=== PATIENT | female | born 1990 | race Caucasian/White ===

== ENCOUNTER 2019-02-01 08:07 | Outpatient (REF) | payer BC, SELFPAY | END 2019-02-01 08:27 | LOC: NCHCN 08:07 | PROVIDERS: PCP Family Medicine; Visit Provider Physician Assistant Medical | DX: R30.0 Dysuria (principal) | CPT/HCPCS: 87086 ==

== ENCOUNTER 2019-02-14 11:29 | Outpatient (REF) | payer BC, SELFPAY | END 2019-02-14 11:49 | LOC: NCHCN 11:29 | PROVIDERS: PCP Family Medicine; Visit Provider Physician Assistant Medical | DX: R30.0 Dysuria (principal); R10.2 Pelvic and perineal pain | CPT/HCPCS: 87480; 87510; 87660 ==

== ENCOUNTER 2019-09-26 12:08 | Outpatient (REF) | payer BC, SELFPAY | END 2019-09-26 12:28 | LOC: NCHCN 12:08 | PROVIDERS: PCP Family Medicine; Visit Provider Nurse Practitioner Family | DX: S71.101A Unspecified open wound, right thigh, initial encounter (principal); L08.89 Other specified local infections of the skin and subcutaneous tissue | CPT/HCPCS: 87077; 87070; 87186; 87205 ==

== ENCOUNTER 2019-12-07 14:44 | Outpatient (REF) | payer BC, SELFPAY ==
[2019-12-10 19:18] LABS: Patient Race White; SARS-CoV-2 RNA Undetected (Undetected); SARS-CoV-2 Specimen Source Nasopharynx
== END 2019-12-07 15:04 ==
LOC: NCHCN 14:44
PROVIDERS: PCP Family Medicine; Visit Provider Physician Assistant Medical
DX: R50.9 Fever, unspecified (principal)
CPT/HCPCS: U0003

== ENCOUNTER 2020-12-18 13:57 | Outpatient (REF) | payer BC, SELFPAY ==
[2020-12-19 16:28] LABS: COVID-19 RT-PCR UVMMC Result Negative (Negative)
== END 2020-12-18 13:58 | disposition home or self-care (01) ==
LOC: NCHCN 13:57
PROVIDERS: PCP Family Medicine; Visit Provider Physician Assistant Medical
DX: Z20.822 Contact with and (suspected) exposure to COVID-19 (principal); J06.9 Acute upper respiratory infection, unspecified
CPT/HCPCS: U0003

== ENCOUNTER 2020-12-31 09:00 | Outpatient (REF) | payer BC, SELFPAY ==
--- NOTE | 2020-12-31 08:30 | PAPFT_PTH ---
PATIENT: Luzmaria Ramos LOC: [facility] U#:[id number] AGE/SX: 30/F ROOM: RE12/31/[address]: ABIMBOLA Valencia : 1990 BED: DIS: 12/31/2020 SPEC #: [id number] RECD: 12/31/20 11:11 STATUS: AGATHA REQ #: [id number] SAMARA: 12/31/20 08:[address]: Franci Salazar DEPT: [facility] Cytology RECD BY: Erika Peterson ENTERED: 12/31/20 11:12 SP TYPE: PAPFT OTHR DR: Yari Birch V Tissues: 1 - CX/ENDOCX FOR PAP SMEARS Procedures: PAP THIN PREP/UVM Screening HPV DNA PROBE Comments: [id number]
== END 2020-12-31 09:01 | disposition home or self-care (01) ==
LOC: LBN 09:00
PROVIDERS: PCP Family Medicine; Visit Provider Nurse Practitioner Family
DX: Z12.4 Encounter for screening for malignant neoplasm of cervix (principal); Z11.51 Encounter for screening for human papillomavirus (HPV); Z01.419 Encounter for gynecological examination (general) (routine) without abnormal findings
CPT/HCPCS: 88142; 87624

== ENCOUNTER 2021-03-26 16:39 | Outpatient (REF) | payer OTHER, SELFPAY ==
[2021-03-28 11:41] LABS: COVID-19 RT-PCR UVMMC Result Negative (Negative)
== END 2021-03-26 16:40 | disposition home or self-care (01) ==
LOC: NCHCN 16:39
PROVIDERS: PCP Family Medicine; Visit Provider Physician Assistant Medical
DX: Z20.822 Contact with and (suspected) exposure to COVID-19 (principal); J34.89 Other specified disorders of nose and nasal sinuses
CPT/HCPCS: U0003; U0005

== ENCOUNTER 2021-05-09 02:06 | Outpatient (CLI) | payer OTHER, SELFPAY ==
[2021-05-09 10:50] LABS: Abs Immature Grans 0.05 10^3/uL (0.0-0.06); Absolute Basophil Count 0.05 10^3/uL (0.0-0.2); Absolute Eosinophil Count 0.05 10^3/uL (0.0-0.7); Absolute Lymphocyte Count 1.42 10^3/uL (1.2-3.4); Absolute Monocyte Count 0.57 10^3/uL (0.1-0.8); Absolute Neutrophil Count 7.88 10^3/uL (1.2-6.7); Basophils % 0.5; Eosinophils % 0.5; HCT 38.1 % (36.0-46.0); HGB 12.6 g/dL (11.2-15.7); Immature Grans % 0.5; Lymphocytes % 14.2; MCH 28.3 pg (27.0-33.0); MCHC 33.1 % (32.0-36.0); MCV 85.6 fL (80-95); MPV 9.3 fL (8.0-11.0); Monocytes % 5.7; Neutrophils % 78.6; Nucleated RBC 0 %; Platelet Count 264 10^3/uL (130-400); RBC 4.45 10^6/uL (3.93-5.22); RDW 12.4 % (11.7-14.6); RDW-SD 38.5 fL; WBC 10.02 10^3/uL (4.4-10.8)
[2021-05-09 10:52] LABS: Kit/Specimen SENT
[2021-05-09 12:39] LABS: TSH (W/Ref FT4) 0.36 uIU/mL (0.36-3.74)
[2021-05-10 09:40] LABS: Hepatitis B Surface Ag Negative (Negative)
[2021-05-10 10:14] LABS: HIV-1/2 Ag & Ab Screen Negative (Negative)
[2021-05-10 10:28] LABS: Hepatitis C Ab w Rflx HCV PCR Negative (Negative)
[2021-05-10 11:37] LABS: Varicella IgG Antibody Positive (See Note)
[2021-05-10 11:40] LABS: Rubella IgG Ab (UVM) Positive (See Note)
[2021-05-13 12:50] LABS: Syphilis IgG w/Reflex Nonreactive (Nonreactive)
[2021-05-18 02:10] LABS: Specimen WB Whole Blood
[2021-05-18 02:24] LABS: Result Summary NEGATIVE; Specimen WB Whole Blood
== END 2021-05-09 02:07 | disposition home or self-care (01) ==
LOC: LBO 02:06
PROVIDERS: PCP Family Medicine; Visit Provider Advanced Practice Midwife
DX: Z34.81 Encounter for supervision of other normal pregnancy, first trimester
CPT/HCPCS: 81329; 86787; 86803; 86850; 86900; 86901; 87340; 87389; 81220; 84443; 85025; 86762; 86780

== ENCOUNTER 2021-05-09 12:30 | Outpatient (REF) | payer OTHER, SELFPAY ==
[2021-05-09 14:15] LABS: *AMPHETAMINES SCREEN URINE Negative (Negative); *BARBITURATES SCREEN URINE Negative (Negative); *BENZODIAZEPINES SCREEN URINE Negative (Negative); Cannabinoids THC Negative (Negative); Cocaine Screen,Urine Negative (Negative); METHADONE URINE SCREEN Negative (Negative); OPIATES URINE SCREEN Negative (Negative)
[2021-05-09 14:16] LABS: Tricyclic Antidepressants Negative (Negative)
[2021-05-15 10:45] LABS: Buprenorphine Negative ng/mL (Cutoff: 5.0); Norbuprenorphine Negative ng/mL (Cutoff: 2.5)
== END 2021-05-09 12:31 | disposition home or self-care (01) ==
LOC: LBN 12:30
PROVIDERS: PCP Family Medicine; Visit Provider Advanced Practice Midwife
DX: Z32.01 Encounter for pregnancy test, result positive (principal); Z34.91 Encounter for supervision of normal pregnancy, unspecified, first trimester
CPT/HCPCS: 80307; 87086

== ENCOUNTER 2021-06-06 19:34 | Outpatient (REF) | payer OTHER, SELFPAY ==
[2021-06-07 15:16] LABS: Chlamydia Result Negative (Negative); GC Result Negative (Negative)
== END 2021-06-06 19:35 | disposition home or self-care (01) ==
LOC: LBN 19:34
PROVIDERS: PCP Family Medicine; Visit Provider Advanced Practice Midwife
DX: Z11.3 Encounter for screening for infections with a predominantly sexual mode of transmission (principal)
CPT/HCPCS: 87491; 87591

== ENCOUNTER 2021-09-03 00:57 | Outpatient (CLI) | payer OTHER, SELFPAY ==
[2021-09-03 09:04] LABS: HCT 32.6 % (36.0-46.0); HGB 10.6 g/dL (11.2-15.7); MCH 28.6 pg (27.0-33.0); MCHC 32.5 % (32.0-36.0); MCV 88 fL (80-95); MPV 9.3 fL (8.0-11.0); Platelet Count 217 10^3/uL (130-400); RBC 3.71 10^6/uL (3.93-5.22); RDW 12.8 % (11.7-14.6); RDW-SD 40.5 fL; WBC 9.89 10^3/uL (4.4-10.8)
[2021-09-03 09:47] LABS: Glucose,1 Hr (Glucola) 105 mg/dL (80-140)
== END 2021-09-03 00:58 | disposition home or self-care (01) ==
PROVIDERS: Advanced Practice Midwife; PCP Family Medicine; Visit Provider Advanced Practice Midwife
DX: Z34.93 Encounter for supervision of normal pregnancy, unspecified, third trimester (principal); Z3A.28 28 weeks gestation of pregnancy
CPT/HCPCS: 36415; 82950; 85027

== ENCOUNTER → 2021-10-01 00:20 | Outpatient (CLI) | payer OTHER, SELFPAY ==
--- OUTSIDE RECORDS SUMMARY | 2021-10-01 00:21 | XMS_ITS | Clinical Summary ---
:1990 Author Organization [place] [address] Care Team Providers Name Role Phone Yari Birch MD Primary Care Provider Allergies No known active allergies Medications Medication Sig Dispensed Refills Start Date End Date Status vitamin with Take by mouth. 0 Active [id number] Tablet magnesium oxide Take 400 mg by 0 Active (MAG-OX) 400 mg Tablet mouth daily. Family History Medical History Relation Comments Cystic Fibrosis Cousin Relation Status Comments Cousin Social History Tobacco Use Types Packs/Day Years Used Date Never Smoker Smokeless Tobacco: Never Used Sex Assigned at Date Recorded Not on file Last Filed Vital Signs Vital Sign Reading Time Taken Comments Blood Pressure 134/74 06/04/2016 1:48 PM EDT Pulse - - Temperature - - Respiratory Rate - - Oxygen Saturation - - Inhaled Oxygen Concentration - - Weight 61.1 kg (134 lb 11.2 oz) 06/04/2016 1:48 PM EDT Height - - Body Mass Index - - Plan of Treatment Health Maintenance Due Date Last Done Comments Covid-19 Vaccine (#1) 1993 HIV screen 2006 Hepatitis C Screening 2006 Tdap adult 2007 Tetanus vaccine 2007 HPV test 2018 PAP Smear 2018 Influenza (Flu) vaccine (1 of 1 - Influenza standard 11/14/2021 series) Insurance Payer Benefit Plan / Subscriber ID Effective Dates Phone Addre ss Type Group [facility]ETERIO [id number] 2016-Present [address] [place] [address] Care Teams Genetics Physician Relationship Specialty Start Date End Date Yari Birch MD PCP - General 02/05/10 [address] [place] [address]
--- OUTSIDE RECORDS SUMMARY | 2021-10-01 00:21 | XMS_ITS | Encounter Summary ---
:1990 Author Organization [facility] [place] [address] Care Team Providers Name Role Phone Yari Birch MD Primary Care Provider Reason for Visit Reason Comments Ultrasound Finding echogenic intracardiac focus Consultation (Routine) - Closed Specialty Diagnoses / Procedures Referred By Contact Refer red To Contact Genetics / Obstetrics Diagnoses echogenic focus Jazzmine Bean CNM [facility] Subject Matter Expert 5l and Gynecology Procedures full slot [address] [place] [address] [address] [place] [address] Phone: Fax: Referral ID Status Reason Start Date Expiration Date Visits Requ ested Visits Authorized [id number] Closed 05/20/2016 05/20/2017 2 2 Encounter Details Date Type Department Care Team Description 06/04/2016 Office Visit Obstetrics and Chetan Kendall Echogen ic focus of heart of fetus affecting antepartum care of mother, not applicable or unspecified fetus; Gynecology at [facility] Encounter for genetic counseling [address] [place] OBSTETRICS & [id number] GYNECOLOGY [phone] [place], [place] [address] Social History Tobacco Use Types Packs/Day Years Used Date Never Smoker Smokeless Tobacco: Never Used Sex Assigned at Date Recorded Not on file documented as of this encounter Progress Notes Chetan Kendall, [facility] - 06/04/2016 2:00 PM EDT Genetic Counseling Note Luzmaria Ramos is a 26 y.o. female currently at 21w2d gestation. She was referred to the Diagnosis Program by Jazzmine Bean CNM. I met with Luzmaria for a 50 minute genetic counseling visit. She was accompanied to the visit by her , Harry Ramos; and her mother, Debbi Barton. Chief Complaint Patient presents with ??? Ultrasound Finding echogenic intracardiac focus Medical History History reviewed. No pertinent past medical history. Family History Problem (# of Occurrences) Relation (Name,Age of Onset) Cystic Fibrosis (1) Cousin Warner's father had aortic stenosis diagnosed at age four; he has had three surgical repairs. The reported family history was otherwise unremarkable for intellectual disability, congenital anomalies, recurrent loss, or known genetic conditions. A pedigree was obtained and will be scanned into Ra bonilla's electronic medical record. Luzmaria is of Australian and ancestry. Warner is of Omani, Italian, Guamanian, Belarusian, and ancestry. Consanguinity is denied. Obstetric History T1 TAB0 SAB0 E0 M0 L1 # Outcome Date GA Lbr Ernie/2nd Weight Sex Delivery Anes PTL Lv 2 Current 1 Term 03/20/14 39w0d 3.452 kg (7 lb 9.8 oz) F Vag-Spont None N Y Patient's last menstrual period was 01/07/2016. Estimated Date of Delivery: 10/13/2016 Assessment 1. Echogenic intracardiac focus: Echogenic intracardiac foci are observed in 4- 7% of euploid fetuses. They are also noted in 15-20% of fetuses with Down syndrome (trisomy 21) and are considered to be asoft marker for this condition. Luzmaria previously declined aneuploidy screening. We discussed the benefits, risks, and limitations of cell-free DNA screening for trisomy 21 and amniocentesis for chromosome analysis. Luzmaria declined amniocentesis but will await the results of today's ultrasound before making a final decision regarding cell-free DNA screening. Aside from the relationship to aneuploidy, an echogenic intracardiac focus is a benign finding and is not associated with an increased risk for structural heart defects. echocardiogram or follow-up ultrasonography is not warranted. 2. Family history of cystic fibrosis: Luzmaria has a 14-year-old cousin who was diagnosed with cystic fibrosis at age seven. She has mild pulmonary disease but poor growth. Based on the family history asreported, Luzmaria's chance of being a cystic fibrosis carrier is 1 in 4 (25%). With no known family history, Warner's carrier risk is 1 in 25 (4%). Their chance of having an affected child is 1 in 400 (0.25%). Luzmaria had previously declined carrier screening and is not interested in pursuing this today. If she (or other family members) would like to pursue this in the future, it would be very important to know her cousin's CFTR variants to ensure that the appropriate test would be selected. 3. Family history of aortic stenosis: Congenital heart defects are the most common type of defect and affect about 1% of newborns. The majority of congenital heart defects are isolated, although some will be associated with a genetic condition or an environmental exposure. Warner's father's historyis consistent with isolated, congenital aortic stenosis. The recurrence risk to Warner's children is around 1-2%. Plan Luzmaria is scheduled for a targeted morphology ultrasound and maternal- medicine consultation following our visit today. Addendum Following today's ultrasound, Luzmaria requested cell-free DNA screening. She will have her blood drawn today for the [employer] Test. I will call her when the results are available in 5-10 days. documented in this encounter Plan of Treatment Not on filedocumented as of this encounter Procedures Procedure Name Priority Date/Time Associated Diagnosis Comme nts LAB SCAN 06/16/2016 12:00 AM Results for this EDT procedure are i n the results section . documented in this encounter Results SCAN DOC: LAB (06/16/2016 12:00 AM EDT) Narrative 06/16/2016 12:00 AM EDT This result has an attachment that is no t available. Ordered by an unspecified provider. Scanning Provider MEDIA MGR SCAN EXT ORDR/RSLT Miscellaneous Lab request (06/04/2016 4:38 PM EDT) [facility] gist Method Time Signature Misc Lab Request NADIYA IBARRA Result received in [facility]. HOSPITAL LABORATORY Specimen Anatomical Collection Method Collection Time Receive d Time (Source) Location / / Volume Laterality Blood specimen 06/04/2016 4:38 PM 017 7:05 (specimen) EDT PM EDT Resulting Agency Comment Spec In Lab E Beverley Oconnor MD HEMATOLOGY ORDERABLES Performing Organization Address City/State/ZIP Code Phon [place] [address] documented in this encounter Visit Diagnoses Diagnosis Echogenic focus of heart of fetus affect ing antepartum care of mother, not applicable or unspecified fetus Encounter for genetic counseling Genetic counseling documented in this encounter Care Teams Biopharmaceutical Rep Relationship Specialty Start Date End Date Yari Birch MD PCP - General 02/05/10 [address] [place] [address] documented as of this encounter
--- OUTSIDE RECORDS SUMMARY | 2021-10-01 00:21 | XMS_ITS | Encounter Summary ---
:1990 Author Organization [facility] [address] Care Team Providers Name Role Phone Yari Birch MD Primary Care Provider Reason for Visit Reason Onset Date Comments Results 06/11/2016 Encounter Details Date Type Department Care Team Description 06/11/2016 Telephone Obstetrics and Gynecology at [facility] Chetan willoughby [facility] Results [facility] OBSTETRICS [place] [address] [place] [address] [phone] (Wo rk) Social History Tobacco Use Types Packs/Day Years Used Date Never Smoker Smokeless Tobacco: Never Used Sex Assigned at Date Recorded Not on file documented as of this encounter Miscellaneous Notes Telephone Encounter - Chetan Kendall [facility] - 06/11/2016 4:32 PM EDT Genetic Counseling Telephone Note I informed Luzmaria Barton of the following results by phone today: [place] Test: Condition Result Probability Trisomy 21 Low Probability Less than 1/10,000 Trisomy 18 Low Probability Less than 1/10,000 Trisomy 13 Low Probability Less than 1/10,000 The [place] Test is a type of cell-free DNA screening for aneuploidy. I reminded Luzmaria that diagnostic testing is available for a definitive result. The laboratory report will be scanned into [facility]. A letter will be mailed to the referring provider'soffice with a copy of the report. documented in this encounter Plan of Treatment Not on filedocumented as of this encounter Visit Diagnoses Not on filedocumented in this encounter Care Teams Trade Mark Attorney Relationship Specialty Start Date End Date Yari Birch MD PCP - General 02/05/10 [address] [place] [address] documented as of this encounter
--- OUTSIDE RECORDS SUMMARY | 2021-10-01 00:21 | XMS_ITS | Encounter Summary ---
:1990 Author Organization [facility] [place] [address] Care Team Providers Name Role Phone Yari Birch MD Primary Care Provider Encounter Details Date Type Department Care Team Description 05/21/2016 Orders Only Obstetrics and Hui Gould MD Echogenic intracardiac Gynecology at [facility] focus of fetus on [facility] DR ultrasound [facility] OBSTETRICS & [place], [place] GYNECOLOGY [id number] [place] [address] [phone] Social History Tobacco Use Types Packs/Day Years Used Date Never Assessed Sex Assigned at Date Recorded Not on file documented as of this encounter Plan of Treatment Not on filedocumented as of this encounter Results US OB Detailed Morphology (06/04/2016 3:38 PM EDT) Anatomical Region Laterality Modality Pelvis, Abdomen Ultrasound Specimen (Source) Anatomical Collection Method Collection Time Re ceived Time Location / / Volume Laterality 06/04/2016 3:36 PM EDT Impressions 06/04/2016 4:53 PM EDT 2nd Trimester - ??EIF- ??Summary Single intrauterine with a ge stational age of 21w 2d based on LMP ??(01/07/16) Composite age based on the current ultr asound alone is 21w 2d. Current growth parameters are consisten t with prior dating indicating normal growth. Amniotic fluid volume is Normal, Genetic sonogram shows an echogenic int ra cardiac focus. ??The remainder of the anatomy a ppeared normal. ??I ??viewed the images and agree with the above interpretation. ? Katharine Oconnor MD Electronically Signed Final Report ?? 04:52 pm Narrative 06/04/2016 4:53 PM EDT OBSTETRICS REPORT ?(Signed Final 06/04/2016 04:52 pm) PATIENT INFO: ID #: ? [id number] ?: ??[birth year] (26 yrs) Name: ? BAN Ya ? Visit Date: 06/04/2016 03:36 pm ? RENEE PERFORMED BY: Performed By: ? Светлана Reich RDMS Attending: ?Katharine Oconnor MD ? ?Beverley Referred By: ?JAZZMINE LLOYD CNM Location: ? [place] SERVICE(S) PROVIDED: ??[facility] - Detailed Morphology - [id number] ? [id number] INDICATIONS: ??echogenic focus R ventricle, Jazzmine Cain vane OB HISTORY: Blood Type: ?? B+ ? Height: ??5' 4 ?? Weight: ?? 134 ? BMI: ??23 EVALUATION: Num Of Fetuses: ? 1 Heart ? 150 Rate(bpm): Cardiac Activity: ?? Observed, normal r hythm Presentation: ? Breech Placenta: ? Anterior P. Cord Insertion: ??Within Normal Limi ts Amniotic Fluid LILA FV: ?Normal --------- BIOMETRY: --------- BPD: ?50.0 ??mm ? G.Age: ?? 21w 1d OFD: ?70.0 ??mm HC: ?192.6 ??mm ? G.Age: ?? 21w 4d AC: ?163.4 ??mm ? G.Age: ?? 21w 3d FL: ? 34.1 ??mm ? G.Age: ?? 20w 5d HUM: ?31.9 ??mm ? G.Age: ?? 20w 5d CER: ?22.8 ??mm ? G.Age: ?? 21w 3d NFT: ? 4.3 ??mm NB: ? 7.44 ??mm LV: ?7.1 ??mm CM: ?4.6 ??mm CI: ?71.4 ??% ? 70 - 86 FL/HC: ? 17.7 ??% ? 15.9 - 20.3 HC/AC: ? 1.18 ?1.06 - 1.25 FL/BPD: ?68.2 ??% FL/AC: ? 20.9 ??% ? Est. FW: ? 402 ?? gm ?? 0 lb 14 oz GESTATIONAL AGE: LMP: ? 21w 2d ?Date : ??01/07/16 ? MALCOM: ?? 10/13/16 U/S Today: ? 21w 2d ?MALCOM: ?? 10/13/16 Best: ?21w 2d ?? Det. By: ??LMP ??(01/07/16) ?MALCOM: ?? 10/13/16 TARGETED ANATOMY: Central Nervous System Calvarium: ?Within Norm al Limits Intracranial: ? Within Normal Limits Cavum: ?Within Padmini l Limits Lat. Ventricles: ?Within Normal Limits Cerebellum: ? Within Padmini l Limits Choroid Plexus: ? Within Normal Limits Cisterna Magna: ? Within Normal Limits Spine Cervical: ? Visualized Thoracic: ? Visualized Lumbar: ? Visualized Sacral: ? Visualized Head/Neck Face: ? Within No rmal Limits Lips: ? Within No rmal Limits Nuchal Fold: ?Within Padmini l Limits Eyes: ? Normal ?? lens / orbits Neck: ? Within No rmal Limits Profile: ?Visualized Thorax Thoracic Contour: ? Ribs appear nor mal Lungs: ?Visualize d Four Chamber: ? Echogenic int racardi Cardiac Motion: ? Normal Rhythm R Outflow Tract: ?Visualized L Outflow Tract: ?Visualized Aortic Arch: ?Visualized Cardiac Worthington: ? Visualized 3 Vessel View: ?Visualized Diaphragm: ?Visualized Abdomen Ventral Wall: ? Visualized Stomach: ?Visualized Situs: ?Normal Liver: ?Visualize d Lt Kidney: ?Visualized Rt Kidney: ?Visualized Bladder: ?Visualized Bowel: ?Visualize d Extremities Lt Humerus: ? Within Nomal Limits Rt Humerus: ? Within Padmini l Limits Lt Forearm: ? Within Padmini l Limits Rt Forearm: ? Within Padmini l Limits Lt Hand: ?Within Nor mal Limits Rt Hand: ?Within Nor mal Limits Lt Femur: ? Within Norm al Limits Rt Femur: ? Within Norm al Limits Lt Lower Leg: ? Within Normal Limits Rt Lower Leg: ? Within Normal Limits Lt Foot: ?Visualized Rt Foot: ?Visualized Other Umbilical Cord: ? 3 vessel cord Genitalia: ?Female Cord Insertion: ? WIthin Normal Limits Comment: ? Nasal Bone: ??Visuali zed CERVIX UTERUS ADNEXA: Left Ovary Visualized Right Ovary Visualized Procedure Note Katharine Oconnor MD - 06/04/2016For matting of this note might be different from the original. OBSTETRICS REPORT (Signed Final 017 04:52 pm) PATIENT INFO: ID #: [id number] : [birth year] (26 y rs) Name: BAN Ya Visit Date: 06/04/2016 0 3:36 pm RENEE PERFORMED BY: Performed By: Светлана Reich RDMS Attending: Katharine Oconnor MD Referred By: JAZZMINE LLOYD CNM Location: [place] SERVICE(S) PROVIDED: [facility] - Detailed Morphology - [id number] INDICATIONS: echogenic focus R ventricle, Anea Lelon g OB HISTORY: Blood Type: B+ Height: 5'4 Weight: 134 BMI: 23 EVALUATION: Num Of Fetuses: 1 Heart 150 Rate(bpm): Cardiac Activity: Observed, normal rhyt hm Presentation: Breech Placenta: Anterior P. Cord Insertion: Within Normal Limits Amniotic Fluid LILA FV: Normal --------- BIOMETRY: --------- BPD: 50.0 mm G.Age: 21w 1d OFD: 70.0 mm HC: 192.6 mm G.Age: 21w 4d AC: 163.4 mm G.Age: 21w 3d FL: 34.1 mm G.Age: 20w 5d HUM: 31.9 mm G.Age: 20w 5d CER: 22.8 mm G.Age: 21w 3d NFT: 4.3 mm NB: 7.44 mm LV: 7.1 mm CM: 4.6 mm CI: 71.4 % 70 - 86 FL/HC: 17.7 % 15.9 - 20.3 HC/AC: 1.18 1.06 - 1.25 FL/BPD: 68.2 % FL/AC: 20.9 % 20 - 24 Est. FW: 402 gm 0 lb 14 oz GESTATIONAL AGE: LMP: 21w 2d Date: 01/07/16 MALCOM: 7 U/S Today: 21w 2d MALCOM: 10/13/16 Best: 21w 2d Det. By: LMP (01/07/16) ED TARGETED ANATOMY: Central Nervous System Calvarium: Within Normal Limits Intracranial: Within Normal Limits Cavum: Within Normal Limits Lat. Ventricles: Within Normal Limits Cerebellum: Within Normal Limits Choroid Plexus: Within Normal Limits Cisterna Magna: Within Normal Limits Spine Cervical: Visualized Thoracic: Visualized Lumbar: Visualized Sacral: Visualized Head/Neck Face: Within Normal Limits Lips: Within Normal Limits Nuchal Fold: Within Normal Limits Eyes: Normal lens / orbits Neck: Within Normal Limits Profile: Visualized Thorax Thoracic Contour: Ribs appear normal Lungs: Visualized Four Chamber: Echogenic intracardi Cardiac Motion: Normal Rhythm R Outflow Tract: Visualized L Outflow Tract: Visualized Aortic Arch: Visualized Cardiac [place]: Visualized 3 Vessel View: Visualized Diaphragm: Visualized Abdomen Ventral Wall: Visualized Stomach: Visualized Situs: Normal Liver: Visualized Lt Kidney: Visualized Rt Kidney: Visualized Bladder: Visualized Bowel: Visualized Extremities Lt Humerus: Within Nomal Limits Rt Humerus: Within Normal Limits Lt Forearm: Within Normal Limits Rt Forearm: Within Normal Limits Lt Hand: Within Normal Limits Rt Hand: Within Normal Limits Lt Femur: Within Normal Limits Rt Femur: Within Normal Limits Lt Lower Leg: Within Normal Limits Rt Lower Leg: Within Normal Limits Lt Foot: Visualized Rt Foot: Visualized Other Umbilical Cord: 3 vessel cord Genitalia: Female Cord Insertion: WIthin Normal Limits Comment: Nasal Bone: Visualized CERVIX UTERUS ADNEXA: Left Ovary Visualized Right Ovary Visualized IMPRESSION 2nd Trimester - EIF- Summary Single intrauterine with a ge stational age of 21w 2d based on LMP (01/07/16) Composite age based on the current ultr asound alone is 21w 2d. Current growth parameters are consisten t with prior dating indicating normal growth. Amniotic fluid volume is Normal, Genetic sonogram shows an echogenic int ra cardiac focus. The remainder of the anatomy odilia eared normal. I viewed the images and agree with the above interpretation. Katharine Oconnor MD Electronically Signed Final Report 06/04 04:52 pm Hui Gould MD IMG US OB ORDERABLES documented in this encounter Visit Diagnoses Diagnosis Echogenic intracardiac focus of fetus on ultrasound Echogenic intracardiac focus of fetus on ultrasound documented in this encounter Care Teams Construction Controller Relationship Specialty Start Date End Date Yari Birch MD PCP - General 11/23/10 [address] [place] [address] documented as of this encounter
--- OUTSIDE RECORDS SUMMARY | 2021-10-01 00:21 | XMS_ITS | Encounter Summary ---
:1990 Author Organization [facility] [place] [address] Care Team Providers Name Role Phone Yari Birch MD Primary Care Provider Reason for Visit Reason Comments Ultrasound Consultation (Routine) - Closed Specialty Diagnoses / Procedures Referred By Contact Refer red To Contact Genetics / Obstetrics Diagnoses echogenic focus Jazzmine Bean CNM [facility] Auto Inspection Specialist 5l and Gynecology Procedures full slot [address] [place], [place] [address] [address] [place] [address] Phone: Fax: Referral ID Status Reason Start Date Expiration Date Visits Requ ested Visits Authorized [id number] Closed 05/20/2016 05/20/2017 2 2 Encounter Details Date Type Department Care Team Description 06/04/2016 Procedure visit Obstetrics and Pscjose eliasrrer, E Echogenic focus of Gynecology at [facility] MD Beverley heart of fetus [facility] antepartum [facility] [address] care of mother, not [place], [place] OB[place]ETRICS & [place] [id number] GYNECOLOGY unspecified fetus [phone] [place], [place] [address] Social History Tobacco Use Types Packs/Day Years Used Date Never Smoker Smokeless Tobacco: Never Used Sex Assigned at Date Recorded Not on file documented as of this encounter Last Filed Vital Signs Vital Sign Reading Time Taken Comments Blood Pressure 134/74 06/04/2016 1:48 PM EDT Pulse - - Temperature - - Respiratory Rate - - Oxygen Saturation - - Inhaled Oxygen Concentration - - Weight 61.1 kg (134 lb 11.2 oz) 06/04/2016 1:48 PM EDT Height - - Body Mass Index - - documented in this encounter Progress Notes Katharine Oconnor MD - 06/04/2016 3:30 PM EDT Diagnosis/Maternal Medicine Consult Note Luzmaria Barton is a 26 y.o. year old female who is at 21w2d gestation. She is seen in consultation at the request of Jazzmine Bean CNM for evaluation of anatomy due to echogenic intracardiac focus. She was seen today for maternal- medicine consultation, ultrasound evaluation and genetic counseling with Chetan Kendall MS. The patient previously declined aneuploidy screening. Her a priori risk is ~1:1000, based upon maternal age. Review of Systems Constitutional:feels well Movement: normal Contractions: none Leaking: None Bleeding: None There are no active problems to display for this patient. No past medical history on file. No past surgical history on file. Family History Problem Relation Age of Onset ??? Cystic Fibrosis Cousin Social History Occupational History ??? Not on file. Social History Main Topics ??? Smoking status: Never Smoker ??? Smokeless tobacco: Never Used ??? Alcohol use Not on file ??? Drug use: Not on file ??? Sexual activity: Not on file OB History Para Term AB TAB SAB Ectopic Multiple Living 2 1 1 1 # Outc Date GA Lbr Ernie/2nd Wgt Sex Del Anes PTL Lv 1 Term 03/2014 39w0d 3.452 kg (7 lb 9.8 oz) F Vag-Spont None N Y 2 Current Current Outpatient Prescriptions Medication Sig Dispense Refill ??? vitamin with zusgvwxy-Md-Ceiu-FA Tablet Take by mouth. ??? magnesium oxide (MAG-OX) 400 mg Tablet Take 400 mg by mouth daily. No current facility-administered medications for this visit. No Known Allergies Ultrasound Date: 06/04/2016 Amniotic fluid volume normal Presentation breech Placenta anterior Growth appropriate for gestational age anatomy is remarkable for an isolated echogenic intracardiac focus Physical Exam BP 134/74 (BP Location (NBP): Right arm, Patient Position: Sitting, BP Cuff Sizes: Adult (25-34 cm)) Wt 61.1 kg (134 lb 11.2 oz) LMP 01/07/2016 General: alert, well appearing, in no apparent distress, oriented to person, place and time HEENT: normocephalic, atraumatic Neurologic:alert, oriented, normal speech, no focal findings or movement disorder noted Psychiatric: Affect is Appropriate. Assessment and Recommendations: 26 y.o. year old female at 21w2d weeks gestation, referred for counseling regarding echogenic intracardiac focus, with otherwise normal anatomy and low risk on aneuploidy screen based upon maternal age. We discussed that an echogenic intra-cardiac focus is a minor marker for Down Syndrome. When seen with other markers it indicates increased risk, but when seen in isolation it does not change risk. EIFis not an indication of a heart defect, and children with echogenic foci have normal heart structureand function. Based upon this information the patient declined diagnostic testing. She did opt for cell-free DNA screening. No follow-up examinations are indicated. I appreciate the opportunity to be involved in this patients care, and am available if further questions should arise. Katharine OCONNOR MD 06/04/2016 Cc: Jazzmine Bean [facility] [address] [place] [id number] , with copy of ultrasound report documented in this encounter Plan of Treatment Not on filedocumented as of this encounter Procedures Procedure Name Priority Date/Time Associated Comments Diagnosis MISCELLANEOUS LAB Routine 06/04/2016 4:38 PM Echogenic focus o f Results for this REQUEST EDT heart of fetus procedure are in affecting the results antepartum care of section. mother, not applicable or unspecified fetus documented in this encounter Results Miscellaneous Lab request (06/04/2016 4:38 PM EDT) [facility] Method Time Signature [facility] Lab Request NADIYA LAWSONCOCK Result received in [facility]. [facility] Specimen Anatomical Collection Method Collection Time Receive d Time (Source) Location / / Volume Laterality Blood specimen 06/04/2016 4:38 PM 017 7:05 (specimen) EDT PM EDT Resulting Agency Comment Spec In Lab E Beverley Oconnor MD HEMATOLOGY ORDERABLES Performing Organization Address City/State/[place] [address] documented in this encounter Visit Diagnoses Diagnosis Echogenic focus of heart of fetus affect ing antepartum care of mother, not applicable or unspecified fetus documented in this encounter Care Teams Laundry Clerk Relationship Specialty Start Date End Date Yari Birch MD PCP - General 02/05/10 [address] [place] [address] documented as of this encounter
--- OUTSIDE RECORDS SUMMARY | 2021-10-01 00:21 | XMS_ITS | Encounter Summary ---
:1990 Author Organization [facility] [place] [address] Care Team Providers Name Role Phone Yari Birch MD Primary Care Provider Encounter Details Date Type Department Care Team Description 06/04/2016 Hospital Encounter Radiology at [facility] Hui Gould, Echogenic [facility] intracardiac focus of [facility] fetus on [place], [place] [address] ultrasound [id number] OBSTETRICS & [phone] [place] [address] Social History Tobacco Use Types Packs/Day Years Used Date Never Smoker Smokeless Tobacco: Never Used Sex Assigned at Date Recorded Not on file documented as of this encounter Medications at Time of Discharge Medication Sig Dispensed Refills Start Date End Date vitamin with Take by mouth. 0 fsoedtlf-Li-Qena-FA Tablet magnesium oxide (MAG-OX) Take 400 mg by mouth 0 400 mg Tablet daily. documented as of this encounter Plan of Treatment Not on filedocumented as of this encounter Procedures Procedure Name Priority Date/Time Associated Diagnosis Comme nts US OB DETAILED Routine 06/04/2016 3:38 PM Echogenic Results for this MORPHOLOGY EDT intracardiac focus of proced ure are in fetus on the result s ultrasound section. documented in this encounter Results US OB Detailed Morphology [...] and agree with the above interpretation. ? E Carmen Oconnor MD Electronically Signed Final Report ?? 04:52 pm Narrative 06/04/2016 4:53 PM EDT OBSTETRICS REPORT ?(Signed Final 06/04/2016 04:52 pm) PATIENT INFO: ID #: ? [id number] ?: ??[birth year] (26 yrs) Name: ? LUZMARIA Ya ? Visit Date: 06/04/2016 03:36 pm ? RENEE PERFORMED BY: Performed By: ? Светлана Reich RDMS Attending: ?Katharine Oconnor MD ? ?Beverley Referred By: ?JAZZMINE LLOYD [facility] Location: ? [employer] SERVICE(S) PROVIDED: ??[facility] - Detailed Morphology - [id number] ? [id number] INDICATIONS: ??echogenic focus R ventricle, Anea Lel vane OB HISTORY: Blood Type: ?? B+ [...] ?68.2 ??% FL/AC: ? 20.9 ??% ? 20 - Est. FW: ? 402 ?? gm ?? [...] Outflow Tract: ?Visualized Aortic Arch: ?Visualized Cardiac Tujunga: ? Visualized 3 Vessel View: ?Visualized Diaphragm: [...] 017 04:52 pm) PATIENT INFO: ID #: [id number] : [birth year] (26 y rs) Name: LUZMARIA Ya Visit Date: 06/04/2016 0 3:36 pm RENEE PERFORMED BY: Performed By: Светлана Reich RDMS Attending: Katharine Oconnor MD Referred By: JAZZMINE LLOYD CNM Location: [employer] SERVICE(S) PROVIDED: [facility] - Detailed Morphology - [id number] INDICATIONS: echogenic focus R ventricle, Jazzmine Mcqueen g OB HISTORY: Blood Type: B+ Height: [...] Outflow Tract: Visualized Aortic Arch: Visualized Cardiac Tujung[place]: Visualized 3 Vessel View: Visualized Diaphragm: Visualized [...] ultrasound documented in this encounter Care Teams International Travel Consultant Relationship Specialty Start Date End Date Yari Birch MD PCP - General 02/05/10 [address] [place] [address] documented as of this encounter
--- OUTSIDE RECORDS SUMMARY | 2021-10-01 00:22 | XMS_ITS | Encounter Summary ---
:1990 Author Organization [facility] Address [address] [place] [address] Care Team Providers Name Role Phone Lacey Alex MD Primary Care Provider Encounter Details Date Type Department Care Team Description 05/09/2021 Lab Requisition [facility] Outr Resulting Lab, Pathology & Laboratory Provider [facility] [address] [place] [address] Social History Tobacco Use Types Packs/Day Years Used Date Never Assessed Sex Assigned at Date Recorded Not on file documented as of this encounter Plan of Treatment Not on filedocumented as of this encounter Procedures Procedure Name Priority Date/Time Associated Diagnosis Comme nts HEPATITIS C AB W Routine 05/09/2021 10:35 Results for this REFLEX TO HCV RNA EST procedure are in BY PCR the results section. HEPATITIS B SURFACE Routine 05/09/2021 10:35 Resu lts for this ANTIGEN EST procedure are i n the results section. documented in this encounter Results HEPATITIS B SURFACE ANTIGEN (05/09/2021 10:35 EST) Pathologist Sig nature Hep B Surface Ag Negative Negative [facility] Specimen Blood - Venous blood (substance) Performing Organization Address [facility]/ZIP Code Phon e Number [facility] [address] [place] [address] SERVICES HEPATITIS C AB W REFLEX TO HCV RNA BY PCR (05/09/2021 10:35 EST) Pathologist Sig nature Hep C Antibody Negative Negative [facility] ORY SERVICES Specimen Blood - Venous blood (substance) Performing Organization Address [facility] Phon e Number [facility] [address] [place] [address] SERVICES documented in this encounter Visit Diagnoses Not on filedocumented in this encounter Care Teams Permaculture Designer Relationship Specialty Start Date End Date Lacey Alex MD PCP - General 12/13/[address] [place] [address] [address] [place] [address] documented as of this encounter
--- OUTSIDE RECORDS SUMMARY | 2021-10-01 00:22 | XMS_ITS | Encounter Summary ---
:1990 Author Organization [facility] Address [address] [place] [address] Care Team Providers Name Role Phone Lacey Alex MD Primary Care Provider Encounter Details Date Type Department Care Team Description 01/01/2021 Lab Requisition [facility] Franci Salazar E ncounter for other Pathology & TOOL REPAIRER general examination Laboratory Medicine [address] [place], [place] [address] [facility] [address] [place] [address] Social History Tobacco Use Types Packs/Day Years Used Date Never Assessed Sex Assigned at Date Recorded Not on file documented as of this encounter Plan of Treatment Not on filedocumented as of this encounter Procedures Procedure Name Priority Date/Time Associated Comments Diagnosis PAP TEST Today 12/31/2020 8:30 Encounter for other Resul ts for this EDT general examination procedur e are in the results section. HUMAN PAPILLOMAVIRUS Today 12/31/2020 8:30 Encounter for oth er Results for this (HPV) DETECTION-HIGH EDT general examination procedure are in RISK TYPES the results section. documented in this encounter Results HUMAN PAPILLOMAVIRUS (HPV) DETECTION-HIGH RISK TYPES (12/31/2020 8:30 EDT) Human Papillomavirus NegativeComment: No Negative [facility] (HPV) Detection-High E6 or E7 mRNA is CENTER LABORATOR Y Types detected from HPV SERVICES types 16,18,31,33,35,39,45 ,51,52,56,58,59,66, and 68 by clinical specialty rep mediated amplification. Specimen Pap Test - Cervix and/or Endocervix Performing Organization Address City/State/ZIP Code Phon e Number [facility] [address] [place] [address] SERVICES PAP TEST (12/31/2020 8:30 EDT) Specimens A. Cervix and/or [facility] Endocervix , ThinPrep CENTER Imaging System with LABORATORY Manual Evaluation SERVICES Specimen Adequacy Satisfactory for [facility] Evaluation - CENTER transformation zone LABORATORY component present SERVICES General Negative for [facility] intraepithelial [place] lesion or malignancy LABORATORY SERVICES Attestation . [facility] signed by AGATA Abad CT(ASC P) SERVICES on 01/09/2021 a t 2035 Clinical History SEE BELOW [facility] HPV The result for the Human Pap illomavirus (HPV) Detection-High Risk Types is Negative. No E6 or E7 mRNA is detected from HPV types 16,18,31,33,35,39,45,51,52,56,58,59,66, and 68 by clinical specialty rep mediated [facility] amplification.Testing was pe rformed on specimen [id number] and was resulted on 01/09/20212030 EDT by VIVIAN, LAB INSTRUMENT RESULTS IN [facility] SERVICES Performing Lab [facility] SERVICES Scanned Images [facility] SERVICES Specimen Pap Test - Cervix and/or Endocervix Performing Organization Address City/State/ZIP Code Phon e Number [facility] [address] [place] [address] SERVICES documented in this encounter Visit Diagnoses Diagnosis Encounter for other general examination documented in this encounter Care Teams Preparing Box Tender Relationship Specialty Start Date End Date Lacey Alex MD PCP - General 12/13/[address] [place] [address] ,[address] [place] [address] documented as of this encounter
--- OUTSIDE RECORDS SUMMARY | 2021-10-01 00:22 | XMS_ITS | Encounter Summary ---
:1990 Author Organization [facility] Address [address] [place] [address] Care Team Providers Name Role Phone Lacey Alex MD Primary Care Provider Encounter Details Date Type Department Care Team Description 08/29/2013 Results Only [facility] Jazzmine Lloyd CNM Laboratory Services - [address] [place] [address] [address] [place] [address] [phone] Social History Tobacco Use Types Packs/Day Years Used Date Never Assessed Sex Assigned at Date Recorded Not on file documented as of this encounter Plan of Treatment Not on filedocumented as of this encounter Procedures Procedure Name Priority Date/Time Associated Diagnosis Comme nts PAP TEST- RESULT Routine 08/29/2013 0:00 EDT Resu lts for this ONLY procedure are i n the results section. documented in this encounter Results PAP TEST- RESULT ONLY (08/29/2013 0:00 EDT) Pathology Report: CYTOPATHOLOGY REPORT [facility] Reports generated via electronic interface contain zane ginal data; however they are lacking the format of the original re port. Caution should be taken when reading/interpreting unfo rmatted reports. Name: ? BAN DURAN ? Accession #: ? [id number] : ? 1990 (Age: 23) ??F ?Collect Date: ? 08/14 Location: ? [facility] ? Receive Date : ? 08/31/2013 Provider: ?JAZZMINE LLOYD CNM Copy to: ?HEIDY CLIFFORD MD ? Specimen/Source: ? Pap Test, Cervix/Endocervix, ThinPrep Imaging System with manual evaluation Last Menstrual Period: ? 06/08/13 Menstrual/ Status: ? SPECIMEN ADEQUACY ? Satisfactory for Evaluation - transformation zone component present GENERAL CATEGORIZATION ? Negative for Intraepithelial Lesion or Malignan cy ? Document reviewed and electronically signed by: ? HAILEE Scott(ASCP) ? Report Date: ??09/06/2013 12:07 End of Report Specimen Performing Organization Address City/State/ZIP Code Phon e Number [facility] [address] [place] [address] SERVICES [facility] [address] [place] [address] documented in this encounter Visit Diagnoses Not on filedocumented in this encounter Care Teams Fashion Show Director Relationship Specialty Start Date End Date Lacey Alex MD PCP - General 12/13/[address] [place] [address] ,[address] [place], [place] [address] documented as of this encounter
--- OUTSIDE RECORDS SUMMARY | 2021-10-01 00:22 | XMS_ITS | Encounter Summary ---
:1990 Author Organization [facility] Address [address] [place] [address] Care Team Providers Name Role Phone Lacey Alex MD Primary Care Provider Encounter Details Date Type Department Care Team Description 06/06/2021 Lab Requisition [facility] Outr Resulting Lab, Pathology & Laboratory Provider [facility] [address] [place] [address] Social History Tobacco Use Types Packs/Day Years Used Date Never Assessed Sex Assigned at Date Recorded Not on file documented as of this encounter Plan of Treatment Not on filedocumented as of this encounter Procedures Procedure Name Priority Date/Time Associated Comments Diagnosis CHLAMYDIA/N. Routine 06/06/2021 9:50 Results for this GONORRHOEAE AMPLIFIED EDT proced ure are in RNA the results section. documented in this encounter Results CHLAMYDIA/N. GONORRHOEAE AMPLIFIED RNA (06/06/2021 9:50 EDT) Pathologist Sig nature Gonococcus Result Negative Negative [facility] Chlamydia Result Negative Negative [facility] Specimen Urine - Urine, Initial Void Narrative [facility] - 06/07/2021 15:11 EDT A first catch urine specimen is acceptab le for detection of Gonorrhea and Chlamydia, but might detect up to 10% fewer infecti ons when compared with vaginal and endocervical swab samples. Performing Organization Address City/State/ZIP Code Phon e Number [facility] [address] [place] [address] SERVICES documented in this encounter Visit Diagnoses Not on filedocumented in this encounter Care Teams Tip Stitcher Relationship Specialty Start Date End Date Lacey Alex MD PCP - General 12/13/[address] [place] [address] ,[address] [place] [address] documented as of this encounter
--- OUTSIDE RECORDS SUMMARY | 2021-10-01 00:22 | XMS_ITS | Encounter Summary ---
:1990 Author Organization [facility] Address [address] [place] [address] Care Team Providers Name Role Phone Unknown, Provider Primary Care Provider Yari Birch MD Primary Care Provider Encounter Details Date Type Department Care Team Description 12/09/2012 Results Only [facility] Mayo Barreto MD [phone] [address] [facility] [place] [address] (Wo rk) Social History Tobacco Use Types Packs/Day Years Used Date Never Assessed Sex Assigned at Date Recorded Not on file documented as of this encounter Plan of Treatment Not on filedocumented as of this encounter Procedures Procedure Name Priority Date/Time Associated Diagnosis Comme [facility] SURGICAL PATHOLOGY Routine 12/09/2012 9:58 EDT Re sults for this procedure are i n the results section. documented in this encounter Results SURGICAL PATHOLOGY (12/09/2012 9:58 EDT) Pathology Report: SURGICAL PATHOLOGY REPORT [facility] Reports generated via electronic interface contain zane ginal data; LAB however they are lacking the format of the original re port. Caution should be taken when reading/interpreting unfo rmatted reports. Name: ? ABHIJEET DURAN ? Accession #: ? [id number] ? : ? 1990 (Age: 22) ??F ? Collect Date: ? 12/09/2012 ? Location: ? [facility] ? Receive Date: ? 013 ? Provider: MAYO MORTENSEN MD Copy to: YARI BIRCH MD ? Final Pathologic Diagnosis: OVARY, LEFT, CYSTECTOMY: - ??Mature cystic teratoma (dermoid cyst) (6.4 cm in g reatest dimension). Document reviewed and electronically signed by: JAZLYN LUNDBERG MD Report ??Date: 12/14/2012 12:20 By the signature above, the attending physician certif ies that he/she has personally conducted a gross and/or microscopic examin ation of the described specimens and rendered or confirmed the above diagnosi s. Specimen(s) Received: Dermoid cyst left ovary Clinical History: Dermoid cyst Gross Description: ? Received in formalin labelled with proper patient identification (initials H, R) and dermoid cyst left ovary is a previously di srupted ovarian cystic structure (6.4 x 3.4 x 2.5 cm). The outer surface is t an-steele and smooth to focally irregular. The cyst is uniloculated and contai ns a copious amount of brown matted hair admixed with sebaceous materia l. The inner lining is smooth and focally hyperemic with a fzq-dize-xfattg 1.3 x 1.1 x 1.0 cm focally calcified friable nodule. The cyst wall is 0.1 cm in t hickness. No residual normal ovary is identified. Silver Spray Worker sections ar e submitted as 1-3 (3 includes 1.3 cm nodule, which is submitted following d ecalcification). ?? Allison Shoemaker 12/10/2012 10:35 AM End of Report Specimen Performing Organization Address City/State/ZIP Code Phon e Number [facility] [address] [place] [phone] SERVICES [facility] [address] [place] [address] documented in this encounter Visit Diagnoses Not on filedocumented in this encounter Care Teams Assistant Department Manager Relationship Specialty Start Date End Date Unknown, Provider, PCP - General 09/26/08 12/09/12 Yari Birch MD PCP - General 12/10/12 12/12/[address] [place] [address] documented as of this encounter
--- OUTSIDE RECORDS SUMMARY | 2021-10-01 00:22 | XMS_ITS | Encounter Summary ---
:1990 Author Organization [facility] Address [address] [place] [address] Care Team Providers Name Role Phone Lacey Alex MD Primary Care Provider Encounter Details Date Type Department Care Team Description 03/20/2016 Results Only [facility]- Jazzmine Pizarro CNM [phone] [place] [address] (Wo rk) Social History Tobacco Use Types Packs/Day Years Used Date Never Assessed Sex Assigned at Date Recorded Not on file documented as of this encounter Plan of Treatment Not on filedocumented as of this encounter Procedures Procedure Name Priority Date/Time Associated Diagnosis Comme nts PAP TEST- RESULT Routine 03/20/2016 0:00 EST Resu lts for this ONLY procedure are i n the results section. documented in this encounter Results PAP TEST- RESULT ONLY (03/20/2016 0:00 EST) Pathology Report: CYTOPATHOLOGY REPORT [facility] Reports generated via electronic interface contain zane ginal data; SERVICES however they are lacking the format of the original re port. Caution should be taken when reading/interpreting unfo rmatted reports. Name: ? BAN ZARATE ? Accession #: ? [id number] : ? 1990 (Age: [age]) ??F ?Collect Date: ? 2016 Location: ? [facility] ? Receive Date : ? 03/21/2016 Provider: ?JAZZMINE LLOYD CNM Copy to: ?HEIDY CLIFFORD MD ? Specimen/Source: ? Pap Test, Cervix, ThinPrep Imaging System with manual evaluation Last Menstrual Period: ? 01/07/2016 Menstrual/ Status: ? SPECIMEN ADEQUACY ? Satisfactory for Evaluation - transformation zone component present GENERAL CATEGORIZATION ? Negative for Intraepithelial Lesion or Malignan cy ? Document reviewed and electronically signed by: ? Catracho Crowell, CT(ASCP) ? Report Date: ??03/25/2016 14:45 End of Report Specimen Performing Organization Address City/State/ZIP Code Phon e Number [facility] [address] [place] [address] SERVICES documented in this encounter Visit Diagnoses Not on filedocumented in this encounter Care Teams Property Management Coordinator Relationship Specialty Start Date End Date Lacey Alex MD PCP - General 12/13/[address] [place] [address] ,[address] [place], [place] [address] documented as of this encounter
--- OUTSIDE RECORDS SUMMARY | 2021-10-01 00:22 | XMS_ITS | Encounter Summary ---
:1990 Author Organization [facility] Address [address] [place] [address] Care Team Providers Name Role Phone Unknown, Provider Primary Care Provider Encounter Details Date Type Department Care Team Description 09/25/2008 Orders Only [facility] Marbella Og, Laboratory Services - Ivonne CARRASCO [address] [address] [place], [place] [address] [phone] Social History Tobacco Use Types Packs/Day Years Used Date Never Assessed Sex Assigned at Date Recorded Not on file documented as of this encounter Plan of Treatment Not on filedocumented as of this encounter Procedures Procedure Name Priority Date/Time Associated Diagnosis Comme [facility] CYTOPATHOLOGY Routine 09/25/2008 0:00 EDT Results for this procedure are i n the results section . documented in this encounter Results CYTOPATHOLOGY (09/25/2008 0:00 EDT) Pathology Report: CYTOPATHOLOGY REPORT ? [facility] ALL EN ? LAB Reports generated via Access [employer] interface contain original data; ? however they are lacking the format of the original report. ? Caution should be taken when reading/interpreting unformatted reports. ? Name: ? RENEE, RAND EE L ? Accession #: ? [id number] ? : ? 1990 (Age: 18) ??F ?Collect Date: ? 09/25/2008 ? Location: ? [facility] ? Receive Date: ? 09/26/2008 ? Provider: ?MARBELLA MCCANN PA ? Copy to: ? Specimen/Source: ? Pap Test, Cervix/Endocervix, ThinPrep Imaging System ? with manual evaluation ? Last Menstrual Period: ? 06/27/09 ? Other: ? Additional clinical informat ion: First pap ? HPVA - HPV testing requested if ASC-US on the current ThinPrep Pap test. ? SPECIMEN ADEQUACY ? Satisfactory for Eval uation ? - transformation zone compon ent present ? GENERAL CATEGORIZATION ? Negative for Intraepi thelial Lesion or Malignancy ? Document reviewed and electr onically signed by: ? eDbbi Garcia, SCT( ASCP) ? Report Date: ??07/16/ 2009 14:00 ? End of Report ? Specimen Performing Organization Address City/State/[facility] Code Phon e Number [facility] [address] [place] [address] SERVICES [facility] [address] [place] [address] documented in this encounter Visit Diagnoses Not on filedocumented in this encounter Care Teams Physician/Ophthalmologist Relationship Specialty Start Date End Date Unknown, Provider, PCP - General 09/26/08 12/09/12 documented as of this encounter
--- OUTSIDE RECORDS SUMMARY | 2021-10-01 00:22 | XMS_ITS | Clinical Summary ---
:1990 Author Organization [facility] Address [address] [place] [address] Care Team Providers Name Role Phone Lacey Alex MD Primary Care Provider Social History Tobacco Use Types Packs/Day Years Used Date Never Assessed Sex Assigned at Date Recorded Not on file Plan of Treatment Health Maintenance Due Date Last Done Comments COVID-19 Vaccine (1) 1993 Hepatitis C Screen Completed 05/09/2021 Care Teams Wood Heel Flap Trimmer Relationship Specialty Start Date End Date Lacey Alex MD PCP - General 12/13/[address] [place] [address] ,[address] [place] [id number]
--- OUTSIDE RECORDS SUMMARY | 2021-10-01 00:22 | XMS_ITS | Encounter Summary ---
:1990 Author Organization [facility] Address [address] [place] [address] Care Team Providers Name Role Phone Lacey Alex MD Primary Care Provider Encounter Details Date Type Department Care Team Description 05/09/2021 Lab Requisition [facility] Outr Resulting Lab, Pathology & Laboratory Provider [facility] [address] [place] [address] Social History Tobacco Use Types Packs/Day Years Used Date Never Assessed Sex Assigned at Date Recorded Not on file documented as of this encounter Plan of Treatment Not on filedocumented as of this encounter Procedures Procedure Name Priority Date/Time Associated Comments Diagnosis HIV 1/2 ANTIGEN AND Routine 05/09/2021 10:35 Resu lts for this ANTIBODY, 4TH EST procedure are in GENERATION the results section. documented in this encounter Results HIV 1/2 ANTIGEN AND ANTIBODY, 4TH GENERATION (05/09/2021 10:35 EST) HIV 1 and 2 NegativeComment: If Negative [facility] Antibody/p24 acute HIV-1 LABORATORY Antigen, 4th infection is SERVICES Generation suspected in a high risk patient, submit plasma specimen for HIV-1 RNA quantitation test. Specimen Blood - Venous blood (substance) Narrative [facility] SERVICES - 05/10/2021 10:08 EST Fourth Generation assay performed on the Siemens Centaur XPT. Performing Organization Address City/State/ZIP Code Phon e Number [facility] [address] [place] [address] SERVICES documented in this encounter Visit Diagnoses Not on filedocumented in this encounter Care Teams Edger Feeder Relationship Specialty Start Date End Date Lacey Alex MD PCP - General 12/13/[address] [place] [address] ,[address] [place] [address] documented as of this encounter
--- OUTSIDE RECORDS SUMMARY | 2021-10-01 00:22 | XMS_ITS | Encounter Summary ---
:1990 Author Organization [facility] Address [address] [place] [id number] Care Team Providers Name Role Phone Lacey Alex MD Primary Care Provider Encounter Details Date Type Department Care Team Description 03/27/2021 Lab Requisition [facility] Outr Resulting Lab, Pathology & Laboratory Provider [facility] [address] [place] [address] Social History Tobacco Use Types Packs/Day Years Used Date Never Assessed Sex Assigned at Date Recorded Not on file documented as of this encounter Plan of Treatment Not on filedocumented as of this encounter Procedures Procedure Name Priority Date/Time Associated Diagnosis Comme nts COVID-19 TEST [facility] Today 03/26/2021 15:50 LAB PCR EST COVID-19 TESTING Routine 03/26/2021 15:50 Results for this EST procedure are i n the results section. documented in this encounter Results COVID-19 TEST [facility] LAB PCR (03/26/2021 15:50 EST) Specimen Swab Performing Organization Address City/State/ZIP Code Phon e Number [facility] [address] [place] [address] SERVICES COVID-19 TESTING (03/26/2021 15:50 EST) COVID-19 rt-PCR Negative Negative [facility] Result Comment: [facility] This test has not been FDA c leared or approved. This test has been authorized by FDA under an EUA for use by authorized laboratories. This test has been authorized only for detection of nucleic acid fro SERVICES m 2019-nCoV, not for any oth er viruses or pathogens. This test is only authorized for the duration of the declaration that circumstances exist justifying the authorization of emergency use of in vitro d iagnostic tests for detectio n and/or diagnosis of 2019-nCoV under section 564(b)(1) of Act, 21 U.S.C ?? 360bbb-3(b) (1), unless the authorization is terminated or revoked sooner. Negative results do not prec lude 2019-nCoV infection and should not be used as the sole basis for treatment or other patient management decisions. Negative results must be combined with clinical observa tions, patient history, and epidemiological informatio n. Testing was performed using the imani SARS-CoV-2 assay ([employer] on the Imani 6800 System Performing Lab [facility] [address] [facility] Lab [facility] SERVICES Specimen Swab Performing Organization Address City/State/ZIP Code Phon e Number [facility] [address] [place] [address] SERVICES documented in this encounter Visit Diagnoses Not on filedocumented in this encounter Care Teams Serials Librarian Relationship Specialty Start Date End Date Lacey Alex MD PCP - General 12/13/[address] [place] [address] DR[address] [place], [place] [id number] documented as of this encounter
--- OUTSIDE RECORDS SUMMARY | 2021-10-01 00:22 | XMS_ITS | Encounter Summary ---
:1990 Author Organization [facility] Address [address] [place] [address] Care Team Providers Name Role Phone Unknown, Provider Primary Care Provider Encounter Details Date Type Department Care Team Description 10/09/2009 Results Only [facility] Debbi Whitlock, YSABEL Laboratory Services - Ivonne [facility] [address] [place] [address] [address] [place] [address] [phone] Social History Tobacco Use Types Packs/Day Years Used Date Never Assessed Sex Assigned at Date Recorded Not on file documented as of this encounter Plan of Treatment Not on filedocumented as of this encounter Procedures Procedure Name Priority Date/Time Associated Diagnosis Comme [facility] CYTOPATHOLOGY Routine 10/09/2009 0:00 EDT Results for this procedure are i n the results section . documented in this encounter Results CYTOPATHOLOGY (10/09/2009 0:00 EDT) Pathology Report: CYTOPATHOLOGY REPORT ? [facility]UTIA ALL EN ? LAB Reports generated via electr onic interface contain original data; ? however they are lacking the format of the original report. ? Caution should be taken when reading/interpreting unformatted reports. ? Name: ? DURAN, RAND EE L ? Accession #: ? [id number] ? : ? 1990 (Age: 19) ??F ?Collect Date: ? 10/09/2009 ? Location: ? [facility] ? Receive Date: ? 10/11/2009 ? Provider: ?DEBBI G TA MALCOM REED OR WIND INSTRUMENT TUNER ? Copy to: ? Specimen/Source: ? Pap Test, Cervix/Endocervix, ThinPrep Imaging System ? with manual evaluation ? Last Menstrual Period: ? 7/9/10 ? Hormonal/Contraceptive Statu s: ? Oral contraceptives ? Other: ? Additional clinical informat ion: normal pap 7/13/09 ? SPECIMEN ADEQUACY ? Satisfactory for Eval uation ? - transformation zone compon ent present ? GENERAL CATEGORIZATION ? Negative for Intraepi thelial Lesion or Malignancy ? Document reviewed and electr onically signed by: ? Sarita Verville,CT(ASCP) ? Report Date: ??07/30/ 2010 14:29 ? End of Report ? Specimen Performing Organization Address City/State/[facility] Phon e Number [facility] [address] [place] [address] SERVICES [facility] [address] [place] [address] documented in this encounter Visit Diagnoses Not on filedocumented in this encounter Care Teams Combination Welder Relationship Specialty Start Date End Date Unknown, Provider, PCP - General 09/26/08 12/09/12 documented as of this encounter
--- NOTE | 2021-10-01 07:30 | DI.US_ITS ---
Exam(s) US OB LILA WEIGHT EXAM: US OB LILA WEIGHT CLINICAL HISTORY: covid during , LILA/WT, U07.1. TECHNIQUE: Transabdominal obstetrical ultrasound was performed. COMPARISON: US US OB F/U FACIAL/LVOT/RVOT from 09/03/2021 FINDINGS: There is a single viable intrauterine gestation with cardiac activity identified-149 bpm The fetus is presently in cephalic position . Amniotic fluid: There is a normal amount of amniotic fluid with an LILA of 18.2cm. Placental location: The placenta is posterior grade 1,with no evidence of placenta previa. Dating parameters place this at approximately 32 weeks and 2 days gestational age, implying MALCOM of November 24, 2021. BPD measures 32 weeks and 5 days HC measures 33 weeks and 1 day AC measures 331 weeks and 4 day FL measures 31 weeks and 4 day Estimated weight is 1844 gm-4 pounds 1 ounce Fetus is at the 22 percentile on the Hadlock scale. IMPRESSION:: Viable 3rd trimester gestation, as described above. DATA REPOSITORY:
== END ==
PROVIDERS: PCP Family Medicine; Visit Provider Advanced Practice Midwife
DX: O98.513 Other viral diseases complicating pregnancy, third trimester (principal); U07.1 COVID-19; Z3A.33 33 weeks gestation of pregnancy
CPT/HCPCS: 76816

== ENCOUNTER 2021-10-29 14:50 | Outpatient (REF) | payer OTHER, SELFPAY | END 2021-10-29 14:51 | disposition home or self-care (01) | LOC: LBN 14:50 | PROVIDERS: PCP Family Medicine; Visit Provider Advanced Practice Midwife | DX: Z34.93 Encounter for supervision of normal pregnancy, unspecified, third trimester (principal); Z36.85 Encounter for antenatal screening for Streptococcus B; Z3A.36 36 weeks gestation of pregnancy | CPT/HCPCS: 87081 ==

== ENCOUNTER 2021-11-13 12:09 | Outpatient (CLI) | payer OTHER, SELFPAY ==
[2021-11-13 12:40] VITALS: BP 132/86; PULSE 108
[2021-11-13 14:30] LABS: ROM Plus Negative
--- NOTE | 2021-11-13 14:45 | W.OBNST ---
Date of service: 11/13/21 Time of Service: 14:45 NST Evaluation Reason for NST Reasons for Nonstress Test: OTHER, SEE COMMENT Reason for NST Other: Rule out Rupture Test and Monitor Explained Test/Monitor Explained: Test Explained, Monitor Explained and Patient Verbalized Understanding Urine Results Urine Protein: Negative Urine Ketones: Positive Urine Glucose: Negative Urine Blood: Negative NST Information Date on Monitor: 11/13/21 Time on Monitor: 12:41 Date off Monitor: 11/13/21 Time off Monitor: 13:19 Total Time on Monitor: 38 NST Interventions: None Contraction Frequency: 5-7 NST Evaluation Patient States Movement: Present FHR Baseline: 125 Variability: Moderate 6-25 bpm Accelerations: 15x15 Decelerations: None NST Results: Reactive Note NST Note Note: Luzmaria had a small gush of fluid last night at 1999. She denies leaking since but has had some lower abdominal pain and is wondering if it might be due to contractions. Contractions are mild and irregular. cervix 1.5 cms/60%. vertex ballotable. ROm Plus is negative. Luzmaria is discharged home with review of signs of labor. NST Reviewed and Verified by: Marleny Mccormack
== END 2021-11-13 14:30 | disposition home or self-care (01) ==
LOC: LBN 12:10 → OBS 12:34
PROVIDERS: PCP Family Medicine; Visit Provider Advanced Practice Midwife
DX: O47.03 False labor before 37 completed weeks of gestation, third trimester (principal)
CPT/HCPCS: 59025; 84112

== ENCOUNTER 2021-11-18 19:00 | Outpatient (CLI) | payer OTHER, SELFPAY ==
[2021-11-18 20:06] VITALS: BP 138/83; PULSE 102; TEMP 36.7
[2021-11-18 20:09] VITALS: BP 138/83; PULSE 102
--- NOTE | 2021-11-18 20:54 | W.OBNST ---
Date of service: 11/18/21 Time of Service: 20:40 NST Evaluation Reason for NST Reasons for Nonstress Test: OTHER, SEE COMMENT Reason for NST Other: rule out labor Gestational Age Gestational Age in Weeks and Days: 39 Weeks and 2Days Test and Monitor Explained Test/Monitor Explained: Test Explained, Monitor Explained and Patient Verbalized Understanding Vital Signs Blood Pressure: 138/83 Pulse: 102 Temperature: 98.1 F Urine Results Urine Protein: Negative Urine Ketones: Negative Urine Glucose: Negative Urine Blood: Negative NST Information Date on Monitor: 11/18/21 Time on Monitor: 20:03 Date off Monitor: 11/18/21 Time off Monitor: 20:38 Total Time on Monitor: 35 NST Interventions: PO Hydration Contraction Frequency: 2-4 NST Evaluation Patient States Movement: Present FHR Baseline: 135 Variability: Moderate 6-25 bpm Accelerations: 15x15 Decelerations: None NST Results: Reactive Note NST Note Note: NST is reactive and reassuring. Patient is having contractions for past 2 hours. No LOF or bleeding and baby is active. VE done per her request, /-1 mid soft. Similar to exam 11/13. Patient will walk about for 2 hours and have repeat exam and if no change will go home to rest. If adequate change will admit for labor. [place] NST Reviewed and Verified by: Marleny Gregorio
[2021-11-18 20:56] VITALS: BP 138/83; PULSE 102; TEMP 36.7
[2021-11-18 21:27] VITALS: BP 126/81; PULSE 96; RESP 18; TEMP 36.6
== END 2021-11-18 22:44 | disposition home or self-care (01) ==
LOC: OBS 22:04 → BCD 22:53 → OBS 22:54
PROVIDERS: PCP Family Medicine; Visit Provider Advanced Practice Midwife
DX: O47.1 False labor at or after 37 completed weeks of gestation (principal); Z3A.39 39 weeks gestation of pregnancy
CPT/HCPCS: 59025

== ENCOUNTER 2021-11-29 15:34 | Inpatient (IN) | payer OTHER, SELFPAY ==
[2021-11-29] VITALS (10 sets, daily range): BP systolic 107–149; BP diastolic 66–92; PULSE 62–114; RESP 16–20; TEMP 36.8–37; O2SAT 99
--- NOTE | 2021-11-29 15:39 | W.PM.OBHPL1 ---
Date of service: 11/29/21 Time of Service: 15:30 Assessment and Plan Assessment and plan (1) Encounter for induction of labor: Status: Acute Assessment and plan: 1. Will admit after reviewing options of continued expectant management VS induction of labor as well as risks and benefits of each. Patient prefers to stay for induction of labor 2. obtain COVID test, CBC, type and screen and pre-eclampsia screening 3. IV placement 4. plan misoprostol vaginally per orders 5. expect NVD. KH (2) Post term over 40 weeks: Status: Acute OB-HPI Labor/Delivery History of Present Illness Reason for Visit: induction Chief Complaint: Maternal Discomfort (frequent jan jauregui contractions with desire for induction of labor at 40w6d) , Associated Signs and Symptoms of Maternal Discomfort: contractions, pelvic pain, sleep disruption. MALCOM Calculator Estimated Delivery Date Method Current WG Current Estimate 11/23/21 Ultrasound #1 40w 6d Other Estimates 10/28/21 LMP (Uncertain) 44w 4d History of Present Expected Delivery Route/Plan - CNM FOB/ - Warner Ramos BG Carmenza Santiago GBS negative Not interested in using tub or nitrous Specific Issues/Plan 1. Vaccinated but not boosted - was COVID+ 04/04/21 (6-7 wks); 32 wk growth scan; 22% LILA 18.2 1a. covid positive 11/14- paxlovid taken 2. FOB's father w/congenital septal defect (repaired): offered level 2 @ [facility] 2a. Pt declines [facility] referral, plans 18 wk ultrasound @ [facility] 3.Desires all genetic screening, declines AFP, CF/SMA negative 3a. Panorama LR X5, gender not identified 4.Both previous babies had tongue-tie, required frenulectomy to latch properly 5. Migraine history - Magnesium recommended. 6. Low lying placenta, discuss with Luzmaria, repeat US at 28 weeks- resolved 6.8 cms from os. 7. Back pain and right costochondritis - referred to [facility] PT. Assessment: History Reviewed & Current Informed Consent Informed Consent: Induction of Labor (reviewed misoprostol, cervidil, pitocin and alcantara bulb) and Risk,Benefits,Alternatives Discussed Review of Systems All systems reviewed & are unremarkable except as noted in HPI and below Gastrointestinal Gastrointestinal: Reports nausea (started pm 9/15) Psychiatric Psychiatric: Reports abnormal sleep pattern (related to discomfort of advanced 40w6d) and Reports anxiety (stressed by being over her due date and feeling her baby won't come) PFS All Active Problems (Updated 11/29/21 @ 15:52 by Marleny Gregorio CNM) Post term over 40 weeks (Acute) Encounter for induction of labor (Acute) Costochondritis, acute (Acute) Low back pain during in third trimester (Acute) (Acute) (Acute) Migraine headache (Chronic) History of episode of anxiety (Acute) work related, Rx'ed [id number], situation resolved COVID-19 affecting in first trimester (Acute) at home test positive April 06, 2021 Is vaccinated x2, no booster Positive test (Acute) Medical History Low lying placenta nos or without hemorrhage, second trimester Polycystic ovaries Surgical History H/O surgical procedure a. 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 Date GA/Weeks # Preg Succ Route Wgt Sex Labor Lgth Anesthesia Location Prov Complic 03/20/14 39 No vaginal 7 lb 10 oz Female 28 hrs [facility] - [facility] during labor, Jazzmine attended delivery, Dr. Deutsch for repair fourth degree laceration 10/13/16 40 No vaginal 7 lb 11 oz Female 15 hrs local [facility] - [place] Delivery Date: 03/20/14 Last Updated by: Sofy Freire Unmedicated , hand presented with head, had 4th degree repaired w/Dr. Deutsch. Claudia Delivery Date: 10/13/16 Last Updated by: Sofy Freire Unmedicated labor, minimal stitching needed. Zhang Meds Allergies and Home Medications Allergies Allergy/AdvReac Type Severity Reaction Status Date / Time No Known Allergies Allergy Verified 11/29/21 15:48 Home Medications Medication Instructions Recorded Confirmed Type prenat.vits,mary kay,lzs-pblo-cocii 1 tab PO DAILY 03/19/21 11/29/21 History Exam Physical Exam Vital signs: Pulse BP 114 H 142/78 H 11/29/21 14:18 11/29/21 14:18 Vital Signs Reviewed: Yes Narrative: elevated systolic, likely anxiety produced, will get pre-eclampsia labs with admission labs. Denies symptoms of TRENT, visual disturbance, or epigastric. Constitutional Constitutional: no acute distress Detailed Labor and Delivery Exam Dilation: 2 Effacement (%): 80 station: -2 Position: ROP Cervix position: posterior Consistency: soft Crisostomo Score: Cervical Points Exam 0 1 2 3 Dilation Closed 1-2cm 3-4 cm 5-6cm Effacement 0-30% 40-50% 60-70% 80% Consistency Firm Medium Soft Station -3 -2 -1,0 +1,+2 Position Posterior Mid Anterior CRISOSTOMO Score(Cervical Ripeness Score): 7 Amniotic Membrane Status: Intact Monitor Mode: Palpation Contraction Frequency(min): irregular Contraction Duration(sec): 40-60 Contraction Intensity: Mild Comments: irregular mild contractions noted. KH Fetus A Assessment Note: NST done prior to admission is reactive and reassuring. LILA today 13.0 per Bala Freire CNM currently off the monitor awaiting admission process, HEENT Exam HEENT Exam: Normal Neck Exam Neck Exam: Normal (normal visual exam) Chest/Brest/Axilla Exam Chest Exam: Not Done Breast Exam Breast Exam: Not Done Respiratory Exam Respiratory Exam: Normal Cardiovascular Exam Cardiovascular Exam: Normal (mild BP elevation. ) Abdominal Exam Abdominal Exam: Normal (gravid uterus, size equals dates) Rectal Exam Rectal Exam: Not Done Exam Exam: Normal Extremities Exam Extremities Exam: Normal Back/Spine/Pelvis Exam Back Exam: Normal Pelvis Adequate: Yes Skin Exam Skin Exam: Normal Neurological Exam Neurological Exam: Normal Results Results Group Beta Strep: Negative Blood Type: B+ Rubella Status: Immune Varicella Immunity: Immune Lab Results: SMA and CF neg, panorama LR, 1 hour glucose 105 Risk Assessment Risk for Shoulder Dystocia Historical/Initial OB: NEGATIVE FOR: Pelvic Abnormality, Pre- BMI>30, Previous Shoulder Dystocia or Previous Macrosomia Delivery Plan @ 36wks: NVD planned. KH Risk for Pre-Eclampsia Date Initiated/Initials: not indicated. 04/18/2021 Yes, if one or more: NEGATIVE FOR: Hx Pre-E/Gest HTN, Chronic HTN, Multiple Gestation, Pre-gestational DM, Renal Disease, Systemic Lupus or APA Syndrome Yes, if 2 or more: NEGATIVE FOR: Nulliparity, Age>= 35 yrs, >10yr btwn pregnancies, BMI>30, ethinicty, Mother/Sister w/ Pre-E or Previous IUGR Risk for Post- Hemorrhage Initial: NEGATIVE FOR: Multiple Gestation, Previous PPH, Known Clotting Deficiency, Grand Multiparity or Anticoagulation Risks Reviewed Risks Reviewed Upon Admission: Yes
[2021-11-29 16:21] LABS: HCT 34.1 % (36.0-46.0); HGB 11.5 g/dL (11.2-15.7); MCH 28.5 pg (27.0-33.0); MCHC 33.7 % (32.0-36.0); MCV 84 fL (80-95); MPV 10.7 fL (8.0-11.0); Platelet Count 215 10^3/uL (130-400); RBC 4.04 10^6/uL (3.93-5.22); RDW 13.8 % (11.7-14.6); RDW-SD 42.1 fL; WBC 7.26 10^3/uL (4.4-10.8)
[2021-11-29] MEDS: miSOPROStol 25 MCG TAB VG (16:26)
[2021-11-29 16:40] LABS: ALT 18 U/L (14-59); AST 18 U/L (15-37); Alkaline Phosphatase 159 U/L (46-116); BUN 11 mg/dL (7-18); Bilirubin, Total 0.2 mg/dL (0.2-1.0); CREATININE 0.7 mg/dL (0.55-1.02); Calcium 8.5 mg/dL (8.5-10.1); Chloride 102 mmol/L (98-107); Estimated GFR 117.04 (mL/min/1.73m2); Glucose 82 mg/dL (74-106); LDH 160 U/L (81-234); Potassium 3.4 mmol/L (3.5-5.1); Sodium 135 mmol/L (136-145); Total Protein 7.2 g/dL (6.4-8.2); Uric Acid 5.5 mg/dL (2.6-6.0)
[2021-11-29 16:44] LABS: PROTEIN 10.2 mg/dL; Prot/Crea Ur Ratio 0.16
--- NOTE | 2021-11-29 19:48 | NUR.NOTE ---
Pt sitting on edge of bed appears to be coping well with her contractions. While performing assessment 3 contractions occurred within 2-3 minutes between and palpated moderate to hard and pt rated pain to 7. HR 150's between contractions and no decel during the course of a contraction. Pt is out of bed and this minute is rocking on toilet. The contractions are starting to have her breathing and repositioning. Hsb is present and uspportive and assisting with massage and pressure points. Nursing Note:
[2021-11-29] MEDS: Oxytocin 10 UNITS/ML VIAL IM (20:28)
--- NOTE | 2021-11-29 20:40 | OBVDS_ITS ---
Date of service: 11/29/21 Time of Service: 20:40 OB Labor/ Delivery Information Baby A Delivery Delivery Method: Spontaneaous Presentation: Vertex Vertex Position: Right Occipital Anterior Cord Description-Baby A: 3 Vessels and Clamped/Cut (after 2 minutes of delayed cord clamping) Amniotic Fluid: Clear Estimated Blood Loss: 150 Delivery Outcome: Liveborn Infant Complications: none Infant Transferred: Remains with Mother Note: CNM was called to bedside due to patient having urge to have BM at approximately 2000. Luzmaria was noted to be 9cm and bulging membranes with involuntary bearing down effort. Second stage huddle done. Patient progressed to delivery at 2021 of live female ELYSE position. Luzmaria was able to reach down and bring her baby into her arms. Baby was skin to skin and after 2 minutes cord stopped pulsing and was double clamped and cut by FOB. 10 units pitocin given IM. Placenta delivers spontaneously at 2023, intact. Fundus firms to U-1 with massage. EBL 150cc. Perineum and vagina inspected and found to be intact. Mother and baby Carmenza Santiago are is satisfactory condition. weight 8lb 6.2 oz. 9/9. strong family bonding noted. Expect normal PP course and discharge in 24-48 hours. Providers Nurse Loss Prevention Detective: Marleny Gregorio Nurse: Amara Barr Nurse: Jazzmine Gonzalez Labor/Delivery Information Number of Babies in Womb: 1 Steroids Given: None Reason Steroids Not Administered: N/A Group Beta Strep: Negative Antibiotics Administered: No Rubella Status: Immune Blood Type: B+ Varicella Immunity: Immune Medication in Delivery: none Maternal Complications: Precipitous Labor(<3hrs) Shoulder Dystocia: No Stages of Labor Complete Dilatation Date: 11/29/21 Complete Dilatation Time: 20:22 ROM Baby A: 11/29/21 ROM Baby A: 20:22 ROM Total Time- Baby A: [id number] Infant Delivery Date-Baby A: 11/29/21 Delivery Time-Baby A: 20:24 Labor Stage 2 Duration: 2 minutes Placenta Delivery Date-Baby A: 11/29/21 Placenta Delivery Time-Baby A: 20:29 Labor-Stage 3 Duration: 5 minutes Placenta Status: Delivered Baby A Infant Gender: Female Gestational Status: Term (39-41.6 wks) Gestational Age in Weeks/Days: 40 Weeks and 6 Days weight: 8 lb 6.2 oz Score-1 Minute Interval(Baby A) Heart Rate-1 minute: 100 BPM or Greater Respiratory Effort- 1 minute: Spontaneous/Strong Cry Muscle Tone-1 minute: Active Movement Reflex Response-1 minute: Prompt Response Color-1 minute: Bluish Hands or Feet Total Score-1 minute: 9 Score-5 Minute Interval(Baby A) Heart Rate- 5 minute: 100 BPM or Greater Respiratory Effort-5 minute: Spontaneous/Strong Cry Muscle Tone-5 minute: Active Movement Reflex Response-5 minute: Prompt Response Color-5 minute: Bluish Hands or Feet Total Score- 5 minute: 9
[2021-11-29] MEDS: Acetaminophen 325 MG TAB 650 MG PO (21:48)
[2021-11-29] MEDS: Ibuprofen 600 MG TAB PO (22:58)
[2021-11-30] MEDS: Acetaminophen 325 MG TAB 650 MG PO (03:54)
[2021-11-30 03:58] VITALS: BP 132/76; PULSE 82; RESP 16; TEMP 36.6; O2SAT 98
--- NOTE | 2021-11-30 09:21 | OBPPV_ITS ---
Date of service: 11/30/21 Time of Service: 08:30 Assessment and Plan Assessment and plan (1) care following vaginal delivery: Status: Acute Assessment and plan: 1. Doing well day 1 PP 2. Will plan discharge this evening or 12/01 based on pediatric and patient preference. [place] (2) Lactating mother: Status: Acute Assessment and plan: 1. Breast feeding is going well, experienced Mother. [place] Subjective Subjective Interval history: Luzmaria is feeling well this morning. Is out of bed independently without difficulty. She slept some and feels breast feeding is going well. [place] baby status: Doing well and Nursing well [place] feeding status: Exclusively breast feeding Exam Physical Exam Vital signs: Temp Pulse Resp BP Pulse Ox 97.9 F 82 16 132/76 98 11/30/21 03:58 11/30/21 03:58 11/30/21 03:58 11/30/21 03:58 11/30/21 03:58 Vital Signs Reviewed: Yes Constitutional Constitutional: no acute distress, average body habitus and cooperative HEENT Exam HEENT Exam: Normal Neck Exam Neck Exam: Normal (normal visual inspection) Respiratory Exam Respiratory Exam: Normal Cardiovascular Exam Cardiovascular Exam: Normal Abdominal Exam Abdomen: Other (normal exam) Fundal Exam Fundus: Below Umbilicus and Firm Comment: small lochia noted. Rectal Exam Rectal Exam: Not Done Exam Perineum: Intact and Normal Extremities Exam Extremity Exam: Normal (denies calf tenderness) and Full ROM Back/Spine/Pelvis Exam Back Exam: Normal Skin Exam Skin Exam: Normal Neurological Exam Neurological Exam: Normal Psychiatric Exam Psychiatric Exam: Normal Results Hemoglobin/Hematocrit: Hgb 11.5 g/dL (11.2-15.7) 11/29/21 15:55 Hct 34.1 % (36.0-46.0) L 11/29/21 15:55 Abnormal Lab Findings: Abnormal Labs 11/29/21 11/29/21 15:55 15:55 Hct 34.1 L Sodium 135 L Potassium 3.4 L Alkaline Phosphatase 159 H Albumin 3.0 L
[2021-11-30 10:27] VITALS: BP 125/85; PULSE 85; RESP 19; TEMP 36.6; O2SAT 98
[2021-11-30 12:59] LABS: Source Nasal/Nares
[2021-11-30 13:05] VITALS: BP 130/86; PULSE 91; RESP 17; TEMP 36.3; O2SAT 97
[2021-11-30 13:31] LABS: COVID-19 PCR Negative (Negative)
[2021-12-01 02:30] VITALS: BP 125/76; PULSE 89; RESP 17; TEMP 36.8; O2SAT 97
--- NOTE | 2021-12-01 07:16 | W.PM.OBDISCH ---
Date of service: 12/01/21 Time of Service: 07:16 DS: Diagnosis Discharge Diagnosis (1) care following vaginal delivery: Status: Acute Asessment and Plan: 1. PP warning signs and how/when to seek care reviewed 2. To return to office at 2 and 6 weeks PP. KH (2) Lactating mother: Status: Acute Asessment and Plan: 1. Continue present management and follow up with [facility] in 2 and 6 weeks and Pediatric provider as scheduled. Discharge Plan Disposition Patient Disposition: HOME Condition: Good Discharge Details Reason For Visit: induction Admit Date/Time: 11/29/21 15:34 Admit Provider: Marleny Gregorio Attending Provider: Marleny Gregorio Primary Care Provider: Yari Birch V Hospital Course Hospital Course: Post term induction at 40w5d with 25 mcg of misoprostol and delivery of live female . Normal vaginal delivery and normal PP course. Home Meds and New Rx's Prescriptions: Continued prenat.vits,mary kay,[id number] Tablet 1 tab PO DAILY Discharge Instructions Stand Alone Forms: BC Instructions, BC Post Vaginal Deliver Activity:: Activity as Tolerated Equipment/Supplies:: No Equipment Needed Diet:: As Tolerated Discharge Orders Discharge Orders: Discharge Order (Routine); Ordered 12/01/21 Ordered By: Marleny Gregorio OB:DS Summary Summary Vaginal Delivery Method: Spontaneaous Episiotomy Description: None Laceration Description: None Laceration Extension: N/A Contraception Discussed Contraception Discussed: Yes Contraceptive Plan: Vasectomy, [place] Infant Gender-Baby A: Female weight: 8 lb 6.2 oz Status at Discharge Functional status at discharge: independent ambulation Overall status at discharge: patient is back to baseline Mental Status: mental status grossly normal Speech and Movement: speech and movement normal Mood: congruent mood Affect: normal affect Exam Physical Exam Vital signs: Temp Pulse Resp BP Pulse Ox 98.2 F 89 17 125/76 97 12/01/21 02:30 12/01/21 02:30 12/01/21 02:30 12/01/21 02:30 12/01/21 02:30 Vital Signs Reviewed: Yes Constitutional Constitutional: no acute distress, average body habitus and cooperative HEENT Exam HEENT Exam: Normal Neck Exam Neck Exam: Normal (normal visual inspection) Respiratory Exam Respiratory Exam: Normal Cardiovascular Exam Cardiovascular Exam: Normal Abdominal Exam Abdomen: Other (normal exam) Fundal Exam Fundus: Below Umbilicus and Firm Comment: small lochia noted. KH Rectal Exam Rectal Exam: Not Done Exam Perineum: Intact and Normal Extremities Exam Extremity Exam: Normal (denies calf tenderness) and Full ROM Back/Spine/Pelvis Exam Back Exam: Normal Skin Exam Skin Exam: Normal Neurological Exam Neurological Exam: Normal Psychiatric Exam Psychiatric Exam: Normal PFSH All Active Problems Lactating mother (Acute) care following vaginal delivery (Acute) Costochondritis, acute (Acute) Migraine headache (Chronic) History of episode of anxiety (Acute) work related, Rx'ed [id number], situation resolved Medical History COVID-19 affecting in first trimester at home test positive April 06, 2021 Is vaccinated x2, no booster Encounter for induction of labor Low back pain during in third trimester Low lying placenta nos or without hemorrhage, second trimester Polycystic ovaries Positive test Post term over 40 weeks Surgical History H/O surgical procedure a. h/o ovarian teratoma excision 2013 Laparoscopic, Ovarian Cystectomy (12/09/12) 6.8cm mature L ovarian teratoma wisdomteeth removed Social History Smoking/Tobacco Use Status: Never Smoking risk assessment performed?: Yes Alcohol Intake: never Drug use: Never Substance use type: does not use Seatbelt use: always Do you feel safe at home: Yes Do you feel safe in your relationship?: Yes Female Reproductive History Menstrual control method: progestin IUCD History History 3 Para 2 Hx # Term Pregnancies 2 Multiple births 0 Hx # Pregnancies 0 Ectopic pregnancies 0 AB induced 0 Hx Number of Living Children 2 AB spontaneous 0 Past Pregnancies Del. Date GA/Weeks # Preg Succ Route Wgt Sex Labor Lgth Anesthesia Location Prov Complic 03/20/14 39 No vaginal 7 lb 10 oz Female 28 hrs [facility] - [facility] during labor, [facility] attended delivery, Dr. Deutsch for repair fourth degree laceration 10/13/16 40 No vaginal 7 lb 11 oz Female 15 hrs local [facility] [place] Delivery Date: 03/20/14 Last Updated by: Sofy Freire Unmedicated , hand presented with head, had 4th degree repaired w/Dr. Deutsch. Claudia Delivery Date: 10/13/16 Last Updated by: Sofy Freire Unmedicated labor, minimal stitching needed. Leatha DS: Data Vitals/I&O Vitals and I&O: Vital Signs Temperature 98.2 F 12/01/21 02:30 Temperature Source Oral 11/30/21 13:05 Pulse 89 12/01/21 02:30 Pulse Rhythm Regular 11/30/21 09:30 Respiratory Rate 17 12/01/21 02:30 Respiratory Depth Normal 11/30/21 19:40 Blood Pressure 125/76 12/01/21 02:30 Blood Pressure Mean 92 12/01/21 02:30 Pulse Oximetry 97 12/01/21 02:30 Oxygen Delivery Method Room Air 11/30/21 13:05 Oxygen Flow Rate 0 11/30/21 13:05 Pain Level 0 11/30/21 11:21 Comment 11/29/21 21:21 Intake & Output 11/30/21 11/30/21 12/01/21 11:59 23:59 11:59 Output Total 350 / 350 Balance -350 / -350 Output: Urine 350 / 350 Other: Urine Color Yellow Data Completed and Pending Labs on day of discharge: Labs from last 24 hours 11/30/21 12:43 COVID-19 Source Nasal/Nares SARS-CoV-2 (PCR) Negative
[2021-12-01 08:17] VITALS: BP 121/83; PULSE 89; RESP 20; TEMP 36.7
== END 2021-12-01 12:15 | disposition home or self-care (01) | DRG 806 ==
LOC: OBS 12-10 10:40 → BCD 12-10 10:40
PROVIDERS: Admitting Provider Advanced Practice Midwife; PCP Family Medicine; Visit Provider Advanced Practice Midwife
DX: O48.0 Post-term pregnancy (principal); O99.354 Diseases of the nervous system complicating childbirth; Z37.0 Single live birth; Z20.822 Contact with and (suspected) exposure to COVID-19; G43.909 Migraine, unspecified, not intractable, without status migrainosus; O99.284 Endocrine, nutritional and metabolic diseases complicating childbirth; E28.2 Polycystic ovarian syndrome; Z3A.40 40 weeks gestation of pregnancy
CPT/HCPCS: 59409; 80053; 85027; 86850; 86900; 86901; 87635; 82565; 83615; 84156; 84550; J2590; J3490

== ENCOUNTER 2022-07-21 18:27 | Outpatient (REF) | payer OTHER, SELFPAY | END 2022-07-21 18:28 | disposition home or self-care (01) | LOC: NCHCN 18:27 | PROVIDERS: PCP Family Medicine; Visit Provider Physician Assistant Medical | DX: L08.89 Other specified local infections of the skin and subcutaneous tissue (principal); S90.455A Superficial foreign body, left lesser toe(s), initial encounter | CPT/HCPCS: 87070; 87205 ==

== ENCOUNTER 2022-08-29 12:50 | Outpatient (REF) | payer OTHER, SELFPAY | END 2022-08-29 12:51 | disposition home or self-care (01) | LOC: NCHCN 12:50 | PROVIDERS: PCP Family Medicine; Visit Provider Nurse Practitioner Family | DX: M79.644 Pain in right finger(s) (principal); L08.89 Other specified local infections of the skin and subcutaneous tissue | CPT/HCPCS: 87077; 87070; 87205 ==

== ENCOUNTER 2022-08-29 13:51 | Outpatient (CLI) | payer OTHER, SELFPAY ==
--- NOTE | 2022-08-29 12:59 | DI.RAD_ITS ---
Exam(s) XR THUMB RT EXAM: XR THUMB RT CLINICAL HISTORY: RT THUMB PAIN, M79.644, WOUND INFECTION, L08.9. TECHNIQUE: 2D digital imaging was performed. COMPARISON: No exams were available for comparison FINDINGS: 3 views No evidence fracture or dislocation. No radiopaque foreign body. No osseous lesions nor erosions. No degenerative in the articulations of thumb. IMPRESSION: No significant osseous findings in the thumb. DATA REPOSITORY: RADIATION DOSE DELIVERED:
== END 2022-08-29 14:11 ==
LOC: DI 13:52
PROVIDERS: PCP Family Medicine; Visit Provider Nurse Practitioner Family
DX: M79.644 Pain in right finger(s) (principal); L08.9 Local infection of the skin and subcutaneous tissue, unspecified
CPT/HCPCS: 73140